=== PATIENT | male | born 1960 | race Caucasian/White ===

== ENCOUNTER 2024-11-28 01:32 | Day surgery (SDC) | payer MEDICARE, OTHER, SELFPAY ==
[2024-11-21 13:08] VITALS: BMI 29.0
--- NOTE | 2024-11-21 13:18 | PC.NURSE ---
[facility] has started construction of its new state of the art ER which will open Spring 2026. With this, we anticipate parking may be a challenge for some our surgical patients and families. Parking spaces are limited but are available for all Surgical, obstetrics, and ER patients sharing this lot. If you arrive and find you are having a hard time finding a parking space, please note that we understand the challenges, please drive around the hospital and park near Hospital Entrance 1. When you enter this entrance, you can ask a volunteer to direct or take you back to the surgical waiting area to check in. We appreciate everyone?s understanding of these expected challenges while we build for your future. Report to the Outpatient Waiting Room, entrance under the green pavilion located off [address], at time __1115am on date _11/28/24 . Planned Procedure Time: __1:15pm .? Time changes happen often and if your time is changed the preop area will call you the afternoon before. - You and your visitor will be asked to self-screen and do not enter if you have any COVID symptoms. Please call surgeon if you need to reschedule. - A mask is optional within the hospital at this time. Patients may have clear liquids (water, carbonated beverages, clear teas, apple juice) until 3 hours prior to surgery with a maximum of 20 ounces. - No food from midnight until time of surgery and no smoking, or chewing tobacco (or any form of nicotine). No chewing gum, candy or mints. (10:15am) Take only the following medications with a SIP of water on the morning of surgery: ___Amlodipine and tramadol if needed DO NOT STOP ANY OF YOUR OTHER PRESCRIPTION MEDICATIONS PRIOR TO SURGERY EXCEPT THE FOLLOWING Hold all vitamins and supplements for 3 days per anesthesiologist. Medications to discontinue per physician ____HOLD MELOXICAM, ASA, NSAIDS for [address] Bellamy Date to take last dose____11/20/24 Please no make-up, nail german, hairspray, perfume, deodorant, or body powder the day of surgery.? No jewelry (including any body piercings) or valuables the day of surgery, leave them at home.? Please take a shower or bath the night before, or the morning of, surgery with an antibacterial soap.? Wear comfortable, loose fitting clothing.? PREP Per Dr Bellamy- pt to call them again to see if any prep needed like earlier today enema. - Jewelry must be removed prior to entering the operating room.? Rings and piercings that are not removed may be cut off. - The hospital will not accept responsibility for valuables.? - Please leave all valuables, including medications, at home the day of surgery. If you are going home after surgery, a licensed company tanker truck driver must drive you home.? - NO public transportation without another adult if you receive anesthesia. - We recommend that an adult stay with you for 24 hours following discharge. - We also recommend that you do not drive, make important decision, drink alcoholic beverages, or take any drugs that were not prescribed by your health care provider for at least 24 hours after your discharge time. Follow any additional instructions given to you from your surgeon. Telephone instructions given to __Patient and asked if any additional questions and then verbalized understanding. Patient advised to call surgeon office or pre surgery nurse liaison [phone] if any additional questions.
--- NOTE | 2024-11-25 07:23 | PM.HPGS ---
History of Present Illness History of Present Illness Consent: Risks, benefits, and alternatives have been discussed and questions answered. Patient agrees to proceed with procedure. Chief complaint: elevated psa Narrative: Hermes Blackburn is a 64 year old male 11/28/24: Care transferred to Dr. Bellamy after Dr. Dominique schwarz. Elevated PSA - PSA: 9.6 - 4K score: 95 The?probability?of?having?aggressive?prostate?cancer?in?all ?Americans?and?Non-?Americans?by?4Kscore 4KScore?Range?%?Probability?95%?CI ?<5.0?4.1%?2.1%,??7.9% ?? 5.0?to?<10.0?9.6%?5.8%,?15.5% ? 10.0?to?<20.0?19.7%?14.8%,?25.8% ?? >?or?=??20.0?49.4%?44.5%,?54.3% ?? >?or?=??20.0?49.4%?44.5%,?54.3% - mpMRI Prostate: - volume: 41gm / PSAD: 0.23 - PI-RADS 5: left PZ @base-mid Review of Systems Review of Systems: All systems reviewed & are unremarkable except as noted in HPI and below PMFSH Social History Social History Smoking status: Never smoker Second hand tobacco smoke exposure: No Alcohol intake: current Drinks per week: 2 Substance use: never Living arrangements: with family Additional living arrangements comments: Spiritual care concerns: No Meds Home Medications and Allergies Home Medications ?Medication ?Instructions ?Recorded ?Confirmed ?Type amlodipine 10 mg tablet 10 mg PO DAILY 11/21/24 11/21/24 History irbesartan 300 1 tablet PO DAILY 11/21/24 11/21/24 History mg-hydrochlorothiazide 12.5 mg tablet tramadol 50 mg tablet 50 mg PO Q6-8H PRN pain 11/21/24 11/21/24 History Allergies Allergy/AdvReac Type Severity Reaction Status Date / Time Penicillins Allergy Intermediate rash Verified 11/21/24 13:04 Exam Const: General: no acute distress Resp: Effort & Inspection: normal respiratory effort GI: Inspection: non-distended GI Palp: No abdominal tenderness and No Guarding due to palpation present (GI) Auscultation: normal bowel sounds Assessment and Plan Assessment and plan (1) Elevated PSA: Code(s): R97.20 - Elevated prostate specific antigen [PSA] Status: Acute Assessment and Plan: UroNav prostate biopsy
--- OUTSIDE RECORDS SUMMARY | 2024-11-28 01:36 | XMS_ITS | Encounter Summary ---
Author Organization [facility] Address [facility] [place] [address] Care Team Providers Care Clinical Statistical Programmer Name Role Phone Jas Munoz MD Primary Care Provide r Encounter Details Date Type Department Care Team (Late st Contact Info) Description 11/25/2024 Orders Only [facility] [address] [place] [address] Abisai Lopez [place] [id number] [id number] Social History Tobacco Use Types Packs/Day Years Used Date Smoking Tobacco: Never Passive Smoke Exposure: Never Smokeless Tobacco: Never Alcohol Use Standard Drinks/Week Comments Not Currently 3.3 (1 standard drink = 0.6 oz p ure alcohol) SOCIALLY AUDIT-C Answer Date Recorded Frequency of Alcohol Consumption Never 04/12/2018 Average Number of Drinks Not on file 019 Frequency of Binge Drinking Not on file 09/2018 PHQ-2 Answer Date Recorded Patient Health Questionnaire-2 Score 0 07/18/2024 Sex and Gender Information Value Date Recorded Sex Assigned at Not on file Legal Sex Male 7:13 PM CDT Gender Identity Not on file Sexual Orientation Not on file documented as of this encounter Plan of Treatment Not on file documented as of this encounter Results * (ABNORMAL) BASIC METABOLIC PANEL (11/25/2024 12:52 PM CDT) GLUCOSE 132(H) 70 - 99 MG/DL 11/25/2024 2:46 PM CDT [facility] BUN 25(H) 7 - 18 MG/DL 11/25/2024 2:46 PM T [facility] CREATININE S/P/B 0.90 0.7 - 1.3 MG/DL 11/25/2024 2:46 PM T [facility] SODIUM S/P/B 139 136 - 145 MMOL/L 11/25/2024 2:46 PM T [facility] POTASSIUM S/P/B 3.8 3.5 - 5.1 MMOL/L 11/25/2024 2:46 PM T [facility] CHLORIDE S/P/B 103 100 - 108 MMOL/L 11/25/2024 2:46 PM T [facility] CO2 28.3 21 - 32 MMOL/L 11/25/2024 2:46 PM T [facility] CALCIUM S/P/B 9.1 8.5 - 10.1 MG/DL 11/25/2024 2:46 PM T [facility] ANION GAP 7.7 5 - 15 MMOL/L 11/25/2024 2:46 PM T [facility] BUN CREATININE RATIO 27.8(H) 6 - 26 11/25/2024 2:46 PM [facility] GFR ESTIMATE >90 >90 ML/MIN/1.7 3 M2 11/25/2024 2:46 PM T [facility] Comment: NOTE: eGFR is not calculated for patients <18 years of age. This is an estimated GFR calculation using the new CKD EPI creatinine equation without race and so does not require a correction factor for race. This estimated GFR should not be used for calculating drug doses. 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
--- OUTSIDE RECORDS SUMMARY | 2024-11-28 01:36 | XMS_ITS | Encounter Summary ---
Author Organization [facility] Address [facility] [place] [address] Care Team Providers Care Plant Associate Name Role Phone Jas Munoz MD Primary Care Provide r Encounter Details Date Type Department Care Team (Late st Contact Info) Description 11/09/2011 Abstract [facility] Conversion Md, Generic Conversion, Social History Tobacco Use Types Packs/Day Years Used Date Smoking Tobacco: Never Assessed Sex and Gender Information Value Date Recorded Sex Assigned at Not on file Legal Sex Male 7:13 PM CDT Gender Identity Not on file Sexual Orientation Not on file documented as of this encounter Plan of Treatment Not on file documented as of this encounter Visit Diagnoses Not on filedocumented in this encounter Care Teams Plant Associate Relationship Specialty [place] [address] [place] [id number] PCP - General INTERNAL MEDICINE 04/09/18 documented as of this encounter
--- OUTSIDE RECORDS SUMMARY | 2024-11-28 01:36 | XMS_ITS | Encounter Summary ---
Author Organization [facility] Address [address] [place] [address] Care Team Providers Care Reception Interviewer Name Role Phone Jas Munoz MD Primary Care Provide r Encounter Details Date Type Department Care Team (Late st Contact Info) Description 07/20/2022 Radiology [facility] [address] [place], [place] [id number] Nixon Munoz, [facility] [address] [address] Social History Tobacco Use Types Packs/Day Years [...] Date Recorded Patient Health Questionnaire-2 Score 0 07/15/2022 Sex and Gender Information Value Date Recorded Sex Assigned at Not on file Legal Sex Male 7:13 PM CDT Gender Identity Not on file Sexual Orientation Not on file COVID-19 Exposure Response Date Recorded In the last 10 days, have yo u been in contact with someone who was confirmed or suspected to have Coronavirus/COVID-19? 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
--- OUTSIDE RECORDS SUMMARY | 2024-11-28 01:36 | XMS_ITS | Encounter Summary ---
Author Organization [facility] Address [facility] [place] [address] Care Team Providers Care Primary Counselor Name Role Phone Jas Munoz MD Primary Care Provide r Encounter Details Date Type Department Care Team (Latest Contact Info) Description 01/09/2018 Abstract [facility] Alejandra Chambers MD Social History Tobacco Use Types Packs/Day Years [...] on filedocumented in this encounter Care Teams Primary Counselor Relationship Specialty [place] [address] [place] [id number] PCP - General INTERNAL MEDICINE 04/09/18 documented as of this encounter
--- OUTSIDE RECORDS SUMMARY | 2024-11-28 01:36 | XMS_ITS | Clinical Summary ---
Author Organization [facility] Address [address] [place] [address] Care Team Providers Care Rag Grader Name Role Phone Jas Munoz MD Primary Care Provide r Allergies Active Allergy Reactions Criticality Noted Date Comments Penicillins Rash Low 04/16/2013 Medications amLODIPine (NORVASC) 10 MG tabletIndications:E ssential hypertension Take 1 tablet (10 mg total) by mouth daily. 90 tablet 3 5 Active Irbesartan-hydroCHL OROthiazide 300-12.5 MG TabIndications:Esse ntial hypertension Take 1 tablet by mouth daily. 90 tablet 3 5 Active traMADol (ULTRAM) 50 MG tabletIndications:C hronic Pain Take 1 tablet (50 mg total) by mouth every 6 (six) hours as needed. Indications: Chronic Pain 40 tablet 1 5 Active meloxicam (MOBIC) 15 MG tabletIndications:P rimary osteoarthritis of left knee TAKE 1 TABLET (15 MG TOTAL) BY MOUTH DAILY. 30 tablet 5 Active Active Problems Problem Noted Date Diagnosed Date Chronic pain of right knee 07/22/2024 BMI 29.0-29.9,adult 08/14/2023 Primary osteoarthritis of left knee 08/11/2023 Assessment & Plan (09/26/2024 2:36 PM CDT): We discussed the risks, benefits, and alternatives. The only thing proven to slow the progression of osteoarthritis is weight loss. Every pound lost relieves 4 to 6 pounds of stress across the knee. We discussed unloading braces. Formal physical therapy to help with flexibility, mobility, and strength. We discussed TENS units. Nonsteroidal anti-inflammatories as well as Tylenol and pain medication and their side effects. We discussed steroid versus Visco supplement injection. We discussed eventual total knee arthroplasty. Monovisc was injected bilaterally, tolerated well. We'll see him back prior to his vacation in [place] for possible steroid shots. Assessment & Plan (08/11/2023 1:00 PM CDT): Recommendation at this time: went over the risks, benefits as well as the alternatives. He's failed Ibuprofen and activity modification. He's not really wanting to have any type of surgery at this time. Trying to avoid steroids as well. Prescribed Meloxicam 15mg once daily. Will try to get him pre-approved for viscosupplementation. Patient will be seen back once viscosupplementation is pre-approved. Pain in joint, lower leg 03/06/2016 Overview (04/12/2018): Pain in joint involving lower leg Rash and other nonspecific skin eruption 015 Overview (04/12/2018): Rash and other nonspecific skin eruption Dyspepsia and other specifie d disorders of function of stomach 01/09/2014 Overview (04/12/2018): Dyspepsia and other specified disorders of function of stomach Impotence of organic origin 01/09/2014 Overview (04/12/2018): Impotence of organic origin Neoplasm of uncertain behavior of skin of neck 0 05/13/2013 Benign essential hypertension 10/13/2011 Overview (04/12/2018): Benign essential hypertension Resolved Problems Problem Noted Date Diagnosed Date Resolved Date Encounter for screening colonoscopy 01/22/2024 01/29/2024 Encounter for screening colonoscopy 01/22/2024 03/04/2024 Encounter for screening colonoscopy 01/22/2024 03/18/2024 Encounter for screening colonoscopy 01/22/2024 03/25/2024 Encounters Date Type Department Care Team Description 11/25/2024 12:46 PM CDT - 11/25/2024 11:59 PM CDT Hospital Encounter [facility] [address] [place] [address] Abisai Lopez MD Discharge Disposition: Home or Self Care (Routine Discharge) 11/25/2024 Orders Only [facility] [address] [facility] [place] [address] Abisai Lopez MD 11/25/2024 Travel 09/26/2024 1:20 PM CDT [facility] [address] [place] [address] Nahun Carvalho DO Knee Pain (Bilateral knee pain/Monovisc bilateral knees) 09/26/2024 Scan [employer] INFO SRVCS Scanned, [facility] 09/26/2024 Travel 09/25/2024 Orders Only [facility] [address] [place] [address] Nahun Carvalho DO from Last 3 Months Immunizations Immunization Administration Dates Next Due Fluzone 6 Months+ (5.0 mL Mu lti Dose Vial) 01/04/2019(Deferred: Patient Refused) Fluzone 6 Months+ Quad (0.5 mL Prefilled Syringe) 02/07/2022 MODERNA COVID-19 (12+) MRNA, LNP-S, PF, 100 MCG/ 0.5 ML DOSE 05/15/2020,04/17/2020 Pneumococcal (Prevnar 13) 03/18/2020(Deferred: P atient Refused) Pneumococcal (Prevnar 20) 07/19/2023 Shingrix 07/02/2024,01/08/2024 Tdap (Adacel) 03/30/2018 Tdap (Generic) 11/07/2021 Family History Medical History Relation Comments Arthritis Father Heart Disease Father Hypertension Father Arthritis Mother Relation Status Comments Father Mother Social History Tobacco Use Types Packs/Day Years Used Date Smoking Tobacco: Never Passive Smoke Exposure: Never Smokeless Tobacco: Never Tobacco Cessation:Counseling Given: Not Answered Alcohol Use Standard Drinks/Week Comments Not Currently [...] on file Sexual Orientation Not on file Last Filed Vital Signs Vital Sign Reading Time Taken Comments Blood Pressure 138/84 09/26/2024 1:12 PM CDT Pulse 60 09/26/2024 1:12 PM CDT Temperature 36.2 C (97.2 F) 09/26/2024 1:12 PM CDT Respiratory Rate 18 09/26/2024 1:12 PM CDT Oxygen Saturation 96% 09/26/2024 1:12 PM CDT Inhaled Oxygen Concentration - - Weight 108 kg (238 lb) 09/26/2024 1:12 PM CDT Height 193 cm (6' 4) 09/26/2024 1:12 PM CDT Body Mass Index 28.97 09/26/2024 1:12 PM CDT Plan of Treatment Health Maintenance Due Date Last Done Comments Annual Medicare Wellness Visit 2023 COVID-19 Vaccine (2024-2 6 season) 2024 12/14/2022, 05/15/2020, 04/17/2020 DTaP, Tdap and Td Vaccines ( 3 - Td or Tdap) 11/08/2031 11/07/2021, 03/30/2018 RSV Immunization or 60+ Years (1 - 1-dose 75+ series) 2033 Colorectal Cancer Screening Colonoscopy (10 Years) 03/18/2034 03/18/2024, 03/18/2024, 05/07/2013 Hepatitis C Completed 07/19/2022 Pneumococcal Vaccine: 50+ Years Completed 07/19/2023 Zoster Vaccines Completed 07/02/2024, 01/08/2024 PHQ-2 (Physician [place]) Completed 07/18/2024 Meningococcal B Vaccine Aged Out No l onger eligible based on patient's age to complete this topic Meningococcal Vaccine Aged Out No lori pedro eligible based on patient's age to complete this topic RSV Immunizations Under 20 Months Aged Out No longer eligible b ased on patient's age to complete this topic Procedures Procedure Name Priority Date/Time Associated Diagnosis Comments BASIC METABOLIC PANEL Routine 11/25/2024 12:52 PM CDT care home current use of diuretic XR KNEE LT MIN 4V Routine 09/26/2024 1:0 5 PM CDT Primary osteoarthritis of left knee XR KNEE RT MIN 4V Routine 09/26/2024 1:0 5 PM CDT Chronic pain of right knee COLONOSCOPY Routine 03/18/2024 9:16 AM LADDERMAN HEPATITIS C ANTIBODY Routine 07/19/2022 7:54 AM CDT Encounter for hepatitis C screening test for low risk patient from Last 3 Months or Most Recently Relevant to Health Maintenance Results * (ABNORMAL) BASIC METABOLIC PANEL (11/25/2024 12:52 PM CDT) GLUCOSE 132(H) 70 - 99 MG/DL 11/25/2024 2:46 PM CDT [facility] BUN 25(H) 7 - 18 MG/DL 11/25/2024 2:46 PM CDT [facility] CREATININE S/P/B 0.90 0.7 - 1.3 MG/DL 11/25/2024 2:46 PM CDT [facility] SODIUM S/P/B 139 136 - 145 MMOL/L 11/25/2024 2:46 PM CDT [facility] POTASSIUM S/P/B 3.8 3.5 - 5.1 MMOL/L 11/25/2024 2:46 PM CDT [facility] CHLORIDE S/P/B 103 100 - 108 MMOL/L 11/25/2024 2:46 PM CDT [facility] CO2 28.3 21 - 32 MMOL/L 11/25/2024 2:46 PM CDT [facility] CALCIUM S/P/B 9.1 8.5 - 10.1 MG/DL 11/25/2024 2:46 PM CDT [facility] ANION GAP 7.7 5 - 15 MMOL/L 11/25/2024 2:46 PM CDT [facility] BUN CREATININE RATIO 27.8(H) 6 - 26 11/25/2024 2:46 PM CDT [facility] GFR ESTIMATE >90 >90 ML/MIN/1.7 3 M2 11/25/2024 2:46 PM CDT [facility] Comment: NOTE: eGFR is not calculated for patients <18 years of age. This is an estimated GFR calculation using the new CKD EPI creatinine equation without race and so does not require a correction factor for race. This estimated GFR should not be used for calculating drug doses. 11/25/2024 12:5 2 PM CDT us Abisai Lopez MD LABORATORY Final Result [facility] [address] [place] [address], * XR KNEE RT MIN 4V (09/26/2024 1:05 PM CDT) Anatomical Region Laterality Modality Knee Radiographic Georgina ging 09/30/2024 8:32 AM CDT Narrative 09/30/2024 11:01 AM CDT EXAMINATION: XR KNEE RT MIN 4V EXAM TIME: 09/26/2024 12:52 PM HISTORY: Knee pain COMPARISON: X-ray right knee 05/06/2007, correlation with MRI right knee 03/03/2022 TECHNIQUE: AP, lateral, sunrise, tunnel views of the right knee FINDINGS: No acute fracture or bony dislocation is seen. Tricompartmental osteoarthritis is seen with patellar osteophyte formation and asymmetric joint space narrowing. There is medial compartment joint space narrowing with subchondral sclerosis. Minimal lateral compartment osteoarthritis. Osteophyte formation is seen centrally at the lateral margins. Suprapatellar joint effusion. There is also calcification seen of the interosseous membrane. Two intraarticular bodies present which are unchanged from previous MRI examination. IMPRESSION: 1. Tricompartmental osteoarthritis with suprapatellar joint effusion, most prominent within the patellofemoral compartment and overall [id number]. 2. No radiographic evidence of fracture or dislocation is visualized. Dictated By: Mikal Seaman MD on 09/30/2024 8:32 AM Referred By: NAHUN CARVALHO Interpreted By: Mikal Seaman MD, 09/30/2024 8:32 AM Procedure Note Vikas Garcia MD - 09/30/2024 EXAMINATION: XR KNEE RT MIN 4V EXAM TIME: 09/26/2024 12:52 PM HISTORY: Knee pain COMPARISON: X-ray right knee 05/06/2007, correlation with MRI right knee03/03/2022 TECHNIQUE: AP, lateral, sunrise, tunnel views of the right knee FINDINGS: No acute fracture or bony dislocation is seen. Tricompartmentalosteoarthritis is seen with patellar osteophyte formation and asymmetricjoint space narrowing. There is medial compartment joint space narrowingwith subchondral sclerosis. Minimal lateral compartment osteoarthritis.Osteophyte formation is seen centrally at the lateral margins.Suprapatellar joint effusion. There is also calcification seen of theinterosseous membrane. Two intraarticular bodies present which are unchanged from previous MRIexamination. IMPRESSION: 1. Tricompartmental osteoarthritis with suprapatellar joint effusion, mostprominent within the patellofemoral compartment and [id number]. 2. No radiographic evidence of fracture or dislocation is visualized. Dictated By: Mikal Seaman MD on 09/30/2024 8:32 AM Referred By: NAHUN CARVALHO Interpreted By: Mikal Seaman MD, 09/30/2024 8:32 AM Nahun Carvalho DO GENERAL IMAGING Final Result * XR KNEE LT MIN 4V (09/26/2024 1:05 PM CDT) Anatomical Region Laterality Modality Knee Radiographic Georgina ging 09/30/2024 8:43 AM CDT Narrative 09/30/2024 11:00 AM CDT EXAMINATION: XR KNEE LT MIN 4V EXAM TIME: 09/26/2024 12:52 PM HISTORY: pain COMPARISON: X-ray left knee 07/26/2022, MRI left knee 07/30/2008 TECHNIQUE: AP, lateral, sunrise, tunnel views of the left knee FINDINGS: No acute fracture or bony dislocation is seen. Normal bony alignment. Tricompartmental osteoarthritis most significant in the patellofemoral compartment with osteophyte formation asymmetrical joint space narrowing seen laterally. The medial compartment demonstrates subchondral sclerosis and marginal osteophyte formation. Very minimal osteoarthritis of the lateral compartment. Central spurring. Calcifications of the interosseous membrane are noted. Os fabella IMPRESSION: 1. Tricompartmental osteoarthritis most significant in the patellofemoral compartment. 2. No radiographic evidence of fracture or dislocation is visualized. Dictated By: Mikal Seaman MD on 09/30/2024 8:43 AM Referred By: NAHUN CARVALHO Interpreted By: Mikal Seaman MD, 09/30/2024 8:43 AM Procedure Note Vikas Garcia MD - 09/30/2024 EXAMINATION: XR KNEE LT MIN 4V EXAM TIME: 09/26/2024 12:52 PM HISTORY: pain COMPARISON: X-ray left knee 07/26/2022, MRI left knee 07/30/2008 TECHNIQUE: AP, lateral, sunrise, tunnel views of the left knee FINDINGS: No acute fracture or bony dislocation is seen. Normal bonyalignment. Tricompartmental osteoarthritis most significant in thepatellofemoral compartment with osteophyte formation asymmetrical jointspace narrowing seen laterally. The medial compartment demonstratessubchondral sclerosis and marginal osteophyte formation. Very minimalosteoarthritis of the lateral compartment. Central spurring.Calcifications of the interosseous membrane are noted. Os fabella IMPRESSION: 1. Tricompartmental osteoarthritis most significant in the patellofemoralcompartment. 2. No radiographic evidence of fracture or dislocation is visualized. Dictated By: Miakl Seaman MD on 09/30/2024 8:43 AM Referred By: NAHUN CARVALHO Interpreted By: Mikal Seaman MD, 09/30/2024 8:43 AM Nahun Carvalho DO GENERAL IMAGING Final Result * HEPATITIS C AB ([facility] ONLY) (07/19/2022 7:54 AM CDT) HEPATITIS C AB NON-REACTI VE NON-REACTI VE 07/19/2022 4:27 PM CDT [facility] 07/19/2022 7:54 AM CDT Nixon Munoz REC THERAPIST LABORATORY Final Resul t [facility] [address] [place] [address], [place] [phone] * COLONOSCOPY (05/07/2013 12:00 AM LADDERMAN) 05/07/2013 us Documents Scanned SCANNING Final Result [facility] from Last 3 Months or Most Recently Relevant to Health Maintenance Insurance MEDICARE [facility] Care Teams Rag Grader Relationship Specialty [place] [address] [place] [id number] PCP - General INTERNAL MEDICINE 04/09/18
--- OUTSIDE RECORDS SUMMARY | 2024-11-28 01:36 | XMS_ITS | Encounter Summary ---
Author Organization [facility] Address [facility] [place] [address] Care Team Providers Care Sales Program Manager Name Role Phone Jas Munoz MD Primary Care Provide r Encounter Details Date Type Department Care Team (Late st Contact Info) Description 10/12/2011 Abstract [facility] Conversion Md, Generic Conversion, Social [...] on filedocumented in this encounter Care Teams Sales Program Manager Relationship Specialty [place] [address] [place] [id number] PCP - General INTERNAL MEDICINE 04/09/18 documented as of this encounter
--- NOTE | 2024-11-28 06:19 | WPDHPUPDATE1 ---
History and Physical Update Update Date/Time: 11/28/24 06:19 History and Physical has been reviewed, including an updated exam of the patient. There are NO changes in the patient's condition. Risks, benefits, and alternatives have been discussed and questions answered. Patient agrees to proceed with procedure.
[2024-11-28 10:40] VITALS: BP 146/80; PULSE 56; RESP 16; TEMP 36.6; O2SAT 99; BMI 28.5
--- NOTE | 2024-11-28 12:12 | P.PNAN_ITS ---
Anes - Initial Pre Proc Eval Procedure: Operation Date: 11/28/24 13:15 Proposed Procedures p Trans Rectal Ultrasound Fusion Guided Prostate Biopsy - Balwinder Bellamy MD Date/Time: 11/28/24 12:12 Surgeon: Balwinder Bellamy MD Pre Op Diagnosis: elevated psa Patient Data Age: 64 Gender: M Height: 1.93 m Weight: 106.5 kg Last Vital Signs Temp 36.6 C 11/28/24 10:40 Pulse 56 L 11/28/24 10:40 Resp 16 11/28/24 10:40 BP 146/80 H 11/28/24 10:40 Pulse Ox 99 11/28/24 10:40 Allergies Allergy/AdvReac Type Severity Reaction Status Date / Time Penicillins Allergy Intermediate rash Verified 11/28/24 11:52 Home Medications ?Medication ?Instructions ?Recorded ?Confirmed ?Type amlodipine 10 mg tablet 10 mg PO DAILY 11/21/24 0907/28 History irbesartan 300 1 tablet PO DAILY 11/21/24 0 11/28/24 History mg-hydrochlorothiazide 12.5 mg tablet tramadol 50 mg tablet 50 mg PO Q6-8H PRN pain 11/0411/21/24 History Patient hx anesthesia problems: none Family hx anesthesia problems: none Results Review: All pre-operative results and documents have been reviewed as part of the pre- operative evaluation. [facility] Past Medical History Medical History (Updated 11/28/24 @ 12:12 by Abisai oLpez MD) Overweight HTN (hypertension) Surgical History Surgical History (Updated 11/28/24 @ 12:12 by Abisai Lopez MD) H/O ankle fusion Social History Social History Smoking status: Never smoker Second hand tobacco smoke exposure: No Alcohol intake: current Drinks per week: 2 Substance use: never Living arrangements: with family Additional living arrangements comments: Spiritual care concerns: No Anes - Eval Final PreProcedure Day of Procedure 11/28/24 12:12 Patient weight: overweight Heart: regular rate and rhythm Lungs: clear to auscultation Airway: Mallampati scale class II Neurological: alert and oriented Last oral intake: >/= 8 hours ASA classification: II Emergent: no Anesthetic plan: proceed Anesthesia type and monitoring: general GIVS and standard monitoring Results Review: All pre-operative results and documents have been reviewed as part of the pre- operative evaluation. Informed Consent: The patient's anesthetic plan and its attendant risks and benefits were discussed with the patient/family/POA. Questions were solicited and answers provided to the satisfaction of the patient/family/POA.
[2024-11-28] MEDS: cefTRIAXone 1 GM in SODIUM CHLORIDE 0.9% IV 50 ML 100 ML IVPB (12:21)
--- NOTE | 2024-11-28 12:30 | S_PTH ---
PATIENT: Hermes Blackburn LOC: [facility] U#:[id number] AGE/SX: 64/M ROOM: RE11/28/[address]: Balwinder Bellamy MD : 1960 BED: DIS: 11/28/2024 SPEC #: [id number] RECD: 11/28/24 13:22 STATUS: TIFFANY RELiyah #: [id number] BREE: 11/28/24 12:[address]: Balwinder Bellamy DEPT: [facility] Surgical RECD BY: Lacie Adams ENTERED: 11/28/24 13:23 SP TYPE: Surgical OTHR DR: Jas MunozMD Tissues: A - Prostate Bx B - Prostate Bx C - Prostate Bx D - Prostate Bx E - Prostate Bx F - Prostate Bx G - Prostate Bx H - Prostate Bx I - Prostate Bx J - Prostate Bx K - Prostate Bx L - Prostate Bx M - Prostate Bx Procedures: Unstained Slides Hematoxylin and Eosin Stain Prostate Biopsy
[2024-11-28 12:47] VITALS: BP 106/68; PULSE 58; RESP 16; O2SAT 100
[2024-11-28] MEDS: LACTATED RINGERS 1,000 ML 30 ML IV CONT (12:47)
--- NOTE | 2024-11-28 13:07 | W.PM.PROC2 ---
Procedure Note - Detailed Date of Procedure 11/28/24 Pre-op Diagnosis elevated psa Post-op Diagnosis Same Procedure Performed UroNav prostate biopsy Surgeon Balwinder Bellamy MD Anesthesia General Description of Procedure Patient is brought to the operative suite where he is positioned in the left lateral position. Systemic sedation is administered per the anesthesia department. Surgical time-out is undertaken and it's verified the patient has received preoperative antibiotics. Transrectal ultrasonography is undertaken with a standard transrectal probe. The [employer] system is used to superimpose his previously obtained mpMRI prostate images on the real-time transrectal ultrasond images. Prostate volume is calculated at []cc. On the previous mpMRI there is one region of interest. Using the transrectal needle design for prostate biopsies 3 cores from each region of interest her obtain. We then proceeded with a standard 12 core prostate biopsy. Transrectal probe was removed and patient taken to recovery room having tolerated the procedure well. Blood loss was less than 10 cc. Pathology Yes Complications No immediate complications
[2024-11-28 13:17] VITALS: BP 135/70; PULSE 44; RESP 16
== END 2024-11-28 13:28 | disposition home or self-care (01) ==
PROVIDERS: PCP Pediatrics; Visit Provider Urology
PROC: (CPT 55700; principal; 2024-11-28 13:15)
DX: C61 Malignant neoplasm of prostate (principal); R97.20 Elevated prostate specific antigen [PSA]; I10 Essential (primary) hypertension; Z79.891 Long term (current) use of opiate analgesic; Z98.890 Other specified postprocedural states
CPT/HCPCS: 76872; 55700; G0416; J0696; J2003; J2704; J3010; J7120